=== PATIENT | female | born 1990 | race Caucasian/White ===

== ENCOUNTER 2018-10-12 06:00 | Emergency (ER) | payer OTHER, MEDICAID, SELFPAY ==
--- NOTE | 2018-10-12 06:06 | ED_ITS ---
HPI - General Adult General Chief complaint: Upper Respiratory Symptoms Stated complaint: horrible cold, phlegm, hurts to cough Time Seen by Provider: 10/12/18 06:04 Source: patient Mode of arrival: ambulatory Limitations: no limitations History of Present Illness HPI narrative: patient is a 28-year-old female here for evaluation of cough and congestion for the past couple days. She has been taking ujgi-bqi-jifvlpp cough and sinus medication. She does have sinus tenderness. She states the medications are not helping her. Couple hours ago she had severe chest congestion. No fevers. Related Data Previous Rx's Medication Instructions Recorded benzonatate [Tessalon Perles] 100 mg PO TID PRN #14 cap 10/12/18 Allergies Allergy/AdvReac Type Severity Reaction Status Date / Time No Known Drug Allergies Allergy Verified 10/12/18 06:21 Review of Systems Constitutional Denies fever(s) and Denies headache(s) ENT Ears, Nose, Mouth, and Throat: Denies headache(s), Reports sinus pressure and Denies sore throat Cardiovascular Denies chest pain and Reports dyspnea Respiratory Reports cough and Reports dyspnea Gastrointestinal Gastrointestinal: Denies abdominal pain and Denies change in bowel habits Integumentary/Breasts Denies rash Neurologic Denies headache(s) Allergic/Immunologic Denies urticaria PFSH Medical History Healthy adult (Acute) Social History lives independently: Yes Smoking Status: Current every day smoker Social History lives independently: Yes Smoking Status: Current every day smoker Exam Initial Vital Signs Initial Vital Signs: Vital Signs Temperature 99.3 F 10/12/18 06:15 Pulse Rate 106 H 10/12/18 06:15 Respiratory Rate 17 10/12/18 06:15 Blood Pressure 122/78 10/12/18 06:15 Pulse Oximetry 98 10/12/18 06:15 Const General: cooperative, comfortable, well developed, well groomed and No acute distress Orientation: alert, awake and oriented x3 HENMT Head: normal to inspection and normocephalic Resp Effort & Inspection: normal respiratory effort and cough Auscultation: clear to auscultation bilaterally Cardio Rate: regular rate Skin Lesions: no lesions Rashes: no rashes Neuro General: alert, awake and oriented x3 Extrem General: normal to inspection and capillary refill normal Psych Appearance: grossly normal and well kempt Course Orders Ordered: ED Orders 10/12/18 06:12 XR chest 1V Stat Vital Signs - 8 hr 10/12/18 06:15 10/12/18 06:26 Temperature 99.3 F 99.3 F Pulse Rate 106 H 106 H Respiratory Rate 17 17 Blood Pressure [Left Arm] 122/78 Pulse Oximetry 98 98 Medical Decision Making Imaging Data Chest x-ray: Attestation: I personally reviewed and interpreted this imaging study as follows: My impression: No focal pneumonias no pneumothorax normal size heart MDM Narrative Medical decision making narrative: patient is nontoxic appearing. Not in any respiratory distress. My read of the chest x-ray shows no signs of pneumonia. Informed the patient that we would call her if the radiologist read the chest x- ray is otherwise. No indication for antibiotics. She has taken ohjs-cny-mwuobck decongestants. Will add Tessalon Perles to help with her symptoms. patient was given return precautions. Discharge Plan Departure Patient Disposition: Home Clinical Impression: Cough Upper respiratory infection Qualifiers: URI type: unspecified URI Qualified Code(s): J06.9 - Acute upper respiratory infection, unspecified Instructions: Cough (Alternative Therapy), DI for Viral Upper Respiratory Infe ction -- Adult Activity Restrictions/Additional Instructions: make sure your increasing your fluid intake. Be sure your checking the label on the wjqh-nhk-qlebxky cough and cold preparations to avoid taking the same medication in multiple different dosage forms. Call your primary care doctor for follow-up. Return to the emergency department for any new or worsening symptoms Prescriptions: New benzonatate [Tessalon Perles] 100 mg capsule 100 mg PO TID PRN (Reason: cough) Qty: 14 RF: 0
[2018-10-12 06:09] VITALS: BMI 27.4
--- NOTE | 2018-10-12 06:12 | DI.RAD.S_ITS ---
PROCEDURE: XR CHEST 1V INDICATIONS: fever and cough TECHNIQUE: One view of the chest was acquired. COMPARISON: None. FINDINGS: Surgical changes and devices: None. Lungs and pleura: Left basilar opacity infiltrate or artifact. No pleural effusions or pneumothorax. Mediastinum: Mediastinal contours appear normal. Heart size is normal. Bones and chest wall: No suspicious bony lesions. Overlying soft tissues appear unremarkable. IMPRESSION: Left basilar opacity infiltrate or artifact. Dictated by: Kamila Ramirez M.D. on 10/12/2018 at 9:07 Approved by: Kamila Ramirez M.D. on 10/12/2018 at 9:09
[2018-10-12 06:15] VITALS: BP 122/78; PULSE 106; RESP 17; TEMP 37.4; O2SAT 98
[2018-10-12 06:26] VITALS: PULSE 106; RESP 17; TEMP 37.4; O2SAT 98; BMI 27.4
== END 2018-10-12 06:32 | disposition home or self-care (01) ==
PROVIDERS: Emergency Provider Emergency Medicine
DX: J06.9 Acute upper respiratory infection, unspecified (principal)
CPT/HCPCS: 71045; 99282; 99283

== ENCOUNTER 2021-01-24 00:25 | Observation (INO) | payer OTHER, MEDICAID, SELFPAY ==
[2021-01-24] VITALS (17 sets, daily range): BP systolic 93–111; BP diastolic 47–61; PULSE 70–101; RESP 16–21; TEMP 36.2–36.9; O2SAT 97–100; BMI 299.5; BMI 25.7
--- NOTE | 2021-01-24 | PATH_ITS ---
[facility] Accession Number: [id number] . 01 Material submitted: . fallopian tube - PORTION OF RIGHT FALLOPIAN TUBE WITH ECTOPIC . 02 Diagnosis: Right Fallopian Tube, Salpingectomy: Fimbriated fallopian tube with few chorionic villi present, consistent with ectopic gestation. Simple benign paratubal cysts. No evidence of neoplasm. MRV 01/28/2021 1434 Local . 02 Electronically signed: . Edilberto Santiago MD, PhD, Pathologist NPI- [id number] . 01 Gross description: . The specimen is received in formalin labeled portion right fallopian tube with ectopic and consists of a 3.5 cm in length x 1.5 cm in diameter fragmented, disrupted fallopian tube with a pink-purple smooth to ragged serosa. Sectioning reveals a mcrae-pink hemorrhagic mucosa and a lumen measuring 1.0 cm in diameter. The lumen contains clotted blood but no chorionic villi or parts identified. Also, received are multiple red-brown to mcrae-pink fragments of soft tissue and clotted blood, measuring 4.0 x 4.0 x 2.0 cm in aggregate. Plasterer Apprentice sections are submitted. . A1 - Margin en face (blue). A2-A3 - Bisected fimbria. A4 - Central cross sections. A5 - Additional fragments of soft tissue. ([id number]) /[facility] 01/27/2021 1625 Local . 02 Pathologist provided ICD-10: O00.101 . 02 CPT . 332896 Performed at: 01 [facility] [address] [facility], [place], [place] [id number] MD Smooth Ramachandran MD Phone: [phone] Performed at: 02 [facility] [id number] [place] [id number] MD Zoe Caceres MD Phone: [phone]
[2021-01-24 01:00] LABS: Add Manual Diff / Slide Review NO; Basophils Absolute Auto 0 /uL (0-100); Basophils Percent Auto 0.2 % (0-2); Eosinophils Absolute Auto 200 /uL (0-450); Eosinophils Percent Auto 1.2 % (2-4); Hemoglobin 11.6 g/dL (12.0-16.0); Lymphocytes Absolute Auto 1600 /uL (1100-4500); Lymphocytes Percent Auto 10.1 % (25-40); Mean Corpuscular HGB Conc 33.2 % (30-36); Mean Corpuscular Hemoglobin 29.8 PG (26-34); Mean Corpuscular Volume 89.9 fL (80-100); Monocytes Absolute Auto 800 /uL (0-900); Monocytes Percent Auto 5.1 % (3-14); Neutrophils Absolute Auto 13400 /uL (1500-7000); Neutrophils Percent Auto 83.4 % (50-75); Platelet Count 308 X10^3/uL (150-400); Red Blood Cell Count 3.89 X10^6/uL (4.0-5.2); Red Cell Distribution Width 12.8 % (11.6-14.8)
[2021-01-24 01:08] LABS: Alanine Aminotransferase 14 IU/L (<35); Albumin 3.7 g/dL (3.5-5.0); Albumin Globulin Ratio 1.2 (1.0-2.8); Alkaline Phosphatase 63 U/L (38-126); Aspartate Aminotransferase 20 IU/L (14-36); BUN Creatinine Ratio 21.8 (6-22); Bilirubin Total 0.3 mg/dL (0.2-1.3); Blood Urea Nitrogen 12 mg/dL (7-17); Carbon Dioxide 25 mmol/L (22-32); Chloride 103 mmol/L (98-107); Estimated Glomerular Filt Rate > 60.0 mL/min (>60); Globulin 3.1 g/dL (1.7-4.1); Glucose 144 mg/dL (70-100); HEMOLYSIS < 15 (0-50); Lipase 115 U/L (23-300); Sodium 137 mmol/L (137-145); Total Protein 6.8 g/dL (6.3-8.2)
--- NOTE | 2021-01-24 01:48 | ED_ITS ---
HPI - General Adult General Chief complaint: Abdominal Pain Stated complaint: Stomach pain severe Time Seen by Provider: 01/24/21 00:39 Source: patient Mode of arrival: Ambulatory Limitations: no limitations History of Present Illness HPI narrative: Patient is an otherwise healthy 30-year-old female who arrives to the emergency department today for evaluation of generalized abdominal pain. She states that approximately 1 week ago she had lower abdominal discomfort that was fairly severe for approximately a 1 hour but then resolved/improved on its own. She states that over the past week she has had a low-grade lower abdominal discomfort however earlier today she was bending over putting on her shoes when she had a sudden increase in the discomfort again and this time it has continued and that is what brought her into the emergency department. She denies any vaginal bleeding. No urinary symptoms. No change in bowel habits. No prior abdominal surgeries. Has not tried anything for her symptoms prior to arrival. Related Data Previous Rx's Medication Instructions Recorded benzonatate [Tessalon Perles] 100 mg PO TID PRN #14 cap 10/12/18 Allergies Allergy/AdvReac Type Severity Reaction Status Date / Time No Known Drug Allergies Allergy Verified 10/12/18 06:21 Review of Systems Constitutional Constitutional: Denies fever(s) Cardiovascular Cardiovascular: Denies chest pain and Denies dyspnea Respiratory Respiratory: Denies dyspnea Gastrointestinal Gastrointestinal: Reports abdominal pain, Denies change in bowel habits, Denies nausea and Denies vomiting Genitourinary Genitourinary: Reports dysuria Genitourinary: Denies abnormal vaginal bleeding and Reports dysuria Musculoskeletal Musculoskeletal: Reports system reviewed and no additional complaints, except as documented Integumentary/Breasts Skin/Breast: Reports system reviewed and no additional complaints, except as documented Neurologic Neurologic: Denies behavioral changes Psychiatric Psychiatric: Denies behavioral changes Hematologic/Lymphatic On Anticoagulants: No Allergic/Immunologic Allergic/Immunologic: Reports system reviewed and no additional complaints, except as documented Patient History Medical History Healthy adult Social History lives independently: Yes Smoking Status: Current every day smoker Smoking Status: Current every day smoker alcohol intake frequency: 0-2 drinks per day Substance Use Type: methamphetamine Exam Initial Vital Signs Initial Vital Signs: Vital Signs Pulse Rate 95 H 01/24/21 00:37 Respiratory Rate 18 06/12/21 00:37 Blood Pressure 99/55 L 01/24/21 00:37 Pulse Oximetry 100 01/24/21 00:37 Const General: cooperative and comfortable Limitations: mental status not altered HENMT Head: normal to inspection and normocephalic Resp Effort & Inspection: normal respiratory effort Auscultation: clear to auscultation bilaterally Cardio Rate: regular rate Rhythm: regular rhythm GI Inspection: non-distended Palpation: soft and tender (Diffuse tenderness) Back/Spine/Pelvis Back: No CVA tenderness Skin Lesions: no lesions Rashes: no rashes Neuro General: patient alert, patient awake and patient oriented x3 Cognition: normal cognition Speech: speech normal Extrem General: normal to inspection and capillary refill normal Psych Appearance: grossly normal and well kempt Scores GCS Tez coma scale eye opening: Spontaneous Tez coma scale verbal response: Orientated Tez coma scale motor response: Obey commands [place] coma scale total score: 15 Course Orders Ordered: ED Orders 01/24/21 00:50 ABO RH Type Stat Complete Blood Count AUTO DIFF Stat Comprehensive Metabolic Panel Stat HCG Quantitative /Beta subunit Stat Lipase Stat Test Serum,Qual Stat 01/24/21 02:19 US OB <= 14 weeks fetus Stat 01/24/21 03:45 COVID19 - ADMIT (SNOW GROOMER swab/PCR) Stat 01/24/21 03:57 Type and Screen Stat Sodium Chloride (Normal Saline 0.9%) 1,000 mls @ 125 mls/hr IV CONT DEANGELO Last Admin: 01/24/21 03:55 Dose: 125 mls/hr Documented by: ALTA Vital Signs Vital signs: Vital Signs - 8 hr 01/24/21 00:37 01/24/21 00:54 01/24/21 01:00 Temperature 97.6 F Pulse Rate 95 H 101 H 83 Respiratory Rate 18 19 16 Blood Pressure 99/55 L 99/55 L 111/61 Pulse Oximetry 100 100 100 01/24/21 01:30 01/24/21 02:30 01/24/21 03:00 Temperature Pulse Rate 80 80 74 Respiratory Rate Blood Pressure 108/59 L Pulse Oximetry 100 100 99 01/24/21 03:30 01/24/21 04:02 Temperature Pulse Rate 91 H 87 Respiratory Rate 18 Blood Pressure 99/55 L Pulse Oximetry 100 100 Medical Decision Making Lab Data Lab results reviewed: Yes I reviewed the patient's lab results. Result diagrams: 01/24/21 00:50 01/24/21 00:50 Labs: Lab Results 01/24/21 01/24/21 01/24/21 Range/Units 00:50 00:50 00:50 WBC 16.0 H (4.5-11.0) X10^3/uL RBC 3.89 L (4.0-5.2) X10^6/uL Hgb 11.6 L (12.0-16.0) g/dL Hct 35.0 L (36-46) % MCV 89.9 (80-100) fL MCH 29.8 (26-34) PG MCHC 33.2 (30-36) % RDW 12.8 (11.6-14.8) % Plt Count 308 (150-400) X10^3/uL Neut % (Auto) 83.4 H (50-75) % Lymph % (Auto) 10.1 L (25-40) % Bullock % (Auto) 5.1 (3-14) % Eos % (Auto) 1.2 L (2-4) % Baso % (Auto) 0.2 (0-2) % Neut # (Auto) 73036 H (5689-9086) /uL Lymph # (Auto) 1600 (5106-3151) /uL Bullock # (Auto) 800 (0-900) /uL Eos # (Auto) 200 (0-450) /uL Baso # (Auto) 0 (0-100) /uL Sodium 137 (137-145) mmol/L Potassium 4.0 (3.4-5.1) mmol/L Chloride 103 (98-107) mmol/L Carbon Dioxide 25 (22-32) mmol/L BUN 12 (7-17) mg/dL Creatinine 0.55 (0.52-1.04) mg/dL Estimated GFR > 60.0 (>60) mL/min BUN/Creatinine Ratio 21.8 (6-22) Glucose 144 H (70-100) mg/dL Calcium 9.0 (8.4-10.2) mg/dL Total Bilirubin 0.3 (0.2-1.3) mg/dL AST 20 (14-36) IU/L ALT 14 (<35) IU/L Alkaline Phosphatase 63 (38-126) U/L Total Protein 6.8 (6.3-8.2) g/dL Albumin 3.7 (3.5-5.0) g/dL Globulin 3.1 (1.7-4.1) g/dL Albumin/Globulin Ratio 1.2 (1.0-2.8) Lipase 115 (23-300) U/L HCG, Quant mIU/mL Serum , Qual Positive H (Negative) Blood Type 01/24/21 01/24/21 Range/Units 00:50 00:50 WBC (4.5-11.0) X10^3/uL RBC (4.0-5.2) X10^6/uL Hgb (12.0-16.0) g/dL Hct (36-46) % MCV (80-100) fL MCH (26-34) PG MCHC (30-36) % RDW (11.6-14.8) % Plt Count (150-400) X10^3/uL Neut % (Auto) (50-75) % Lymph % (Auto) (25-40) % Bullock % (Auto) (3-14) % Eos % (Auto) (2-4) % Baso % (Auto) (0-2) % Neut # (Auto) (0306-0575) /uL Lymph # (Auto) (6718-1403) /uL Bullock # (Auto) (0-900) /uL Eos # (Auto) (0-450) /uL Baso # (Auto) (0-100) /uL Sodium (137-145) mmol/L Potassium (3.4-5.1) mmol/L Chloride (98-107) mmol/L Carbon Dioxide (22-32) mmol/L BUN (7-17) mg/dL Creatinine (0.52-1.04) mg/dL Estimated GFR (>60) mL/min BUN/Creatinine Ratio (6-22) Glucose (70-100) mg/dL Calcium (8.4-10.2) mg/dL Total Bilirubin (0.2-1.3) mg/dL AST (14-36) IU/L ALT (<35) IU/L Alkaline Phosphatase (38-126) U/L Total Protein (6.3-8.2) g/dL Albumin (3.5-5.0) g/dL Globulin (1.7-4.1) g/dL Albumin/Globulin Ratio (1.0-2.8) Lipase (23-300) U/L HCG, Quant 46783 mIU/mL Serum , Qual (Negative) Blood Type A Positive Urine Dip Bedside Urine Glucose Negative Bedside Urine Bilirubin + 1 Bedside Urine Ketone - Negative Urine Specific Stamps 1.030 Bedside Urine Occult Blood - Negative Bedside Urine pH 5.5 Bedside Urine Protein + 30 Bedside Urine Urobilinogen - Negative Bedside Urine Nitrite - Negative Bedside Urine Leukocytes - Negative Esterase Point of care testing: Urine Dip Bedside Urine Glucose Negative Bedside Urine Bilirubin + 1 Bedside Urine Ketone - Negative Urine Specific Stamps 1.030 Bedside Urine Occult Blood - Negative Bedside Urine pH 5.5 Bedside Urine Protein + 30 Bedside Urine Urobilinogen - Negative Bedside Urine Nitrite - Negative Bedside Urine Leukocytes - Negative Esterase Imaging Data US - OB: Radiologist's Impression: Live right ectopic but may be partially ruptured is there is moderate complex free fluid MDM Narrative Medical decision making narrative: Patient does have a leukocytosis however no definitive indication for any infection. Had generalized abdominal tenderness. The initial plan was to obtain a CT scan for further evaluation however her test was positive. Patient did not know that she was . She thought that she was potentially 2 months along based on her last menstrual cycle. She states that this would be her 2nd making her a . States that her 1st resulted in a line vaginal uncomplicated delivery a 10 years ago. No prior history of sexually transmitted infections. No prior abdominal surgeries. She is Rh positive. HCG quantitative level was obtained it is above the discriminatory zone. An ultrasound was obtained which shows a live right ovarian ectopic . There was concern about a potential rupture given the fluid around the . I did discuss the findings with the patient. I also discussed the findings with Dr. Sanon with learning and development coordinator who comes emergency department to evaluate the patient for probable surgical intervention. Patient is currently stable. Discharge Plan Departure Patient Disposition: Admitted As Inpatient Clinical Impression: Ectopic
[2021-01-24 02:08] LABS: Pregnancy Test Serum,Qual Positive (Negative)
--- NOTE | 2021-01-24 02:19 | DI.US.S_ITS ---
PROCEDURE: US OB <= 14 WEEKS FETUS INDICATIONS: ABDOMINAL PAIN TECHNIQUE: Real-time scanning was performed of the fetus and maternal pelvic organs, with image documentation. Endovaginal scanning was also performed to better visualize the fetus and maternal ovaries. COMPARISON: None. FINDINGS: Embryo: No findings of an intrauterine can be seen. Within the right adnexal region, there is an ectopic seen, with a measured heart rate of 122 beats per minute. The crown-rump length measures 8 mm, which corresponds to an estimated gestational age of 6 weeks 5 days. A 2.8 mm yolk sac can be seen. Maternal organs: The uterus measures 9.1 x 6 x 4.8 cm. Simple and complex nabothian cysts are seen. The endometrial stripe measures 11 mm and demonstrates heterogeneity. Moderate complex free fluid can be seen within the adnexa on both sides and within the pelvic cul-de-sac. The right ovary is enlarged measuring 7.7 x 6.3 x 4.2 cm, and demonstrates a thick walled cyst that measures up to 2.9 cm. Normal appearing color flow can be seen within the right ovary. The left ovary is unremarkable, measuring 2.8 x 2.6 x 1.7 cm. IMPRESSION: Live right adnexal ectopic , with a pole with a heartbeat seen. The ectopic may be partially ruptured, as there is moderate complex free fluid can be seen within both adnexal regions and within the pelvic cul-de-sac. An associated enlarged right ovary is seen. Note: No significant discrepancy from the preliminary report. Dictated by: Zach Landers M.D. on 01/24/2021 at 7:57 Approved by: Zach Landers M.D. on 01/24/2021 at 8:04
[2021-01-24 03:08] LABS: HCG Quantitative /Beta subunit 16621 mIU/mL
[2021-01-24] MEDS: SODIUM CHLORIDE 0.9% 1,000 ML 125 ML IV ×2 (03:55→06:40)
[2021-01-24 04:43] LABS: COVID19 - ADMIT (NP swab/PCR) Negative (Negative)
--- NOTE | 2021-01-24 05:47 | P.HPOB_ITS ---
History of Present Illness History of Present Illness Narrative: Humera Watts is a 30 year old , LMP 2 months ago who presented @ midnight on the morning of 01/24/2021 with a twod ay history of lower abdominal pain. Evaluation in the [facility] ED revealed a + hCG with no IUP but a live 6-7 week ectopic in the right adnexa involving the right ovary and associated hemoperitoneum/clots in the pelvis/adnexae. After counseling regarding all options for management of this condition, the patient is admitted for diagnostic laparoscopy with possible right salpingo-oophorectomy for what has been diagnosed as a partially ruptured right ovarian ectopic . Her last solid food was at approximately 7:00 p.m. on the evening of 01/23/2021 and she did consume approximately 1/2 cup of bottled water just brefore arriving at the ED @ [place] nearly 6 hours ago. BT A+. [facility] Medical History (Updated 01/24/21 @ 05:54 by Damon Sanon MD) Amblyopia Healthy adult Methamphetamine use Surgical History (Updated 01/24/21 @ 05:56 by Damon Sanon MD) History of eye surgery Family History (Updated 01/24/21 @ 05:57 by Damon Sanon MD) Father Heart attack COPD (chronic obstructive pulmonary disease) Social History (Updated 01/24/21 @ 05:58 by Damon Sanon MD) lives independently: Yes Smoking Status: Current every day smoker Tobacco: How many years used: 15 alcohol intake: current substance use type: methamphetamine Meds Home Medications and Allergies Home Medications Medication Instructions Recorded Confirmed Type benzonatate [Tessalon Perles] 100 mg PO TID PRN #14 cap 10/12/18 Rx Allergies Allergy/AdvReac Type Severity Reaction Status Date / Time No Known Drug Allergies Allergy Verified 10/12/18 06:21 Review of Systems Review of Systems ROS: Yes All systems reviewed with the patient and are negative except as otherwise documented Exam Vital Signs (past 8 hours): - 01/24/21 00:37 01/24/21 00:54 01/24/21 01:00 Temperature 97.6 F Pulse Rate 95 H 101 H 83 Respiratory Rate 18 19 16 Blood Pressure 99/55 L 99/55 L 111/61 Pulse Oximetry 100 100 100 01/24/21 01:30 01/24/21 02:30 01/24/21 03:00 Temperature Pulse Rate 80 80 74 Respiratory Rate Blood Pressure 108/59 L Pulse Oximetry 100 100 99 01/24/21 03:30 01/24/21 04:02 01/24/21 04:30 Temperature Pulse Rate 91 H 87 79 Respiratory Rate 18 Blood Pressure 99/55 L 106/57 L Pulse Oximetry 100 100 100 Oxygen Delivery Method Room Air Const General: cooperative and ill appearing Nutritional Appearance: average body habitus Orientation: awake and oriented x3 HENMT Head: normocephalic and atraumatic Ears: hearing grossly normal bilaterally Nose: external nose normal Eyes Alignment and Position: alignment abnormal Periorbital: periorbital findings normal Eyelids: eyelids normal Conjunctivae: conjunctivae normal Sclera: sclerae normal Cornea: corneas normal Pupils: PERRL EOM: EOM intact bilaterally Neck Neck: full ROM and trachea midline Thyroid: thyroid normal Lymphatic: No lymphadenopathy Resp Effort & Inspection: normal respiratory effort and no respiratory distress Auscultation: clear to auscultation bilaterally Cardio Rate: regular rate Rhythm: regular rhythm Heart Sounds: S1 normal and S2 normal GI Inspection: normal to inspection, non-distended, no large pannus and no scars Palpation: no hepatosplenomegaly, firm and tender (Rebound in both LQ's) Auscultation: hypoactive bowel sounds Speculum Exam - Vagina: other (Deferred) Bimanual Exam- Adnexa, other: other (Deferred) Psych Appearance: grossly normal Mental Status: mental status grossly normal Speech and Movement: speech and movement normal Mood: congruent mood Affect: normal affect Attitude: cooperative Thought Process: normal Thought Content: normal Judgment: judgment good Objective Labs Result Diagrams: 01/24/21 00:50 01/24/21 00:50 Labs: Laboratory Results - last 24 hr 01/24/21 01/24/21 01/24/21 00:50 00:50 00:50 WBC 16.0 H RBC 3.89 L Hgb 11.6 L Hct 35.0 L MCV 89.9 MCH 29.8 MCHC 33.2 RDW 12.8 Plt Count 308 Neut % (Auto) 83.4 H Lymph % (Auto) 10.1 L Sunflower % (Auto) 5.1 Eos % (Auto) 1.2 L Baso % (Auto) 0.2 Neut # (Auto) 97630 H Lymph # (Auto) 1600 Sunflower # (Auto) 800 Eos # (Auto) 200 Baso # (Auto) 0 Sodium 137 Potassium 4.0 Chloride 103 Carbon Dioxide 25 BUN 12 Creatinine 0.55 Estimated GFR > 60.0 BUN/Creatinine Ratio 21.8 Glucose 144 H Calcium 9.0 Total Bilirubin 0.3 AST 20 ALT 14 Alkaline Phosphatase 63 Total Protein 6.8 Albumin 3.7 Globulin 3.1 Albumin/Globulin Ratio 1.2 Lipase 115 HCG, Quant Serum , Qual Positive H SARS-CoV-2 (PCR) Blood Type Antibody Screen 01/24/21 01/24/21 01/24/21 00:50 00:50 03:45 WBC RBC Hgb Hct MCV MCH MCHC RDW Plt Count Neut % (Auto) Lymph % (Auto) Sunflower % (Auto) Eos % (Auto) Baso % (Auto) Neut # (Auto) Lymph # (Auto) Sunflower # (Auto) Eos # (Auto) Baso # (Auto) Sodium Potassium Chloride Carbon Dioxide BUN Creatinine Estimated GFR BUN/Creatinine Ratio Glucose Calcium Total Bilirubin AST ALT Alkaline Phosphatase Total Protein Albumin Globulin Albumin/Globulin Ratio Lipase HCG, Quant 74722 Serum , Qual SARS-CoV-2 (PCR) Negative Blood Type A Positive Antibody Screen 01/24/21 03:57 WBC RBC Hgb Hct MCV MCH MCHC RDW Plt Count Neut % (Auto) Lymph % (Auto) Sunflower % (Auto) Eos % (Auto) Baso % (Auto) Neut # (Auto) Lymph # (Auto) Sunflower # (Auto) Eos # (Auto) Baso # (Auto) Sodium Potassium Chloride Carbon Dioxide BUN Creatinine Estimated GFR BUN/Creatinine Ratio Glucose Calcium Total Bilirubin AST ALT Alkaline Phosphatase Total Protein Albumin Globulin Albumin/Globulin Ratio Lipase HCG, Quant Serum , Qual SARS-CoV-2 (PCR) Blood Type A Positive Antibody Screen Negative Assessment & Plan Assessment & Plan narrative: 1. Acute abdomen due to partially ruptured right sided ovarian ectopic with hemoperitoneum - Admit for diagnostic laparoscopy, possible RSO - The patient was counseled regarding alternatives, risks, benefits, and potential outcomes associated with diagnostic laparoscopy for partially ruptured ectopic . With full understanding of the above we are proceeding to the operating room this time due to the aforementioned diagnoses. COVID-19 COVID-19 status: Negative Result date/Date tested (Pos, Neg/Pending): 01/24/21 Time Spent With Patient Time with patient: 25 - 35 minutes
[2021-01-24] MEDS: GABAPENTIN 300 MG CAPSULE PO (06:39)
[2021-01-24] MEDS: SCOPOLAMINE 1 PATCH TOP (06:39)
[2021-01-24] MEDS: ACETAMINOPHEN 325 MG TABLET 975 MG PO (06:39)
--- NOTE | 2021-01-24 07:00 | SUR.HOLD ---
Pt brought from ER to OPD and left for OR in stable condition.
--- NOTE | 2021-01-24 07:20 | SUR.OPER ---
Lithotomy on padded OR bed, head on pillow, arms secured on padded arm boards at <90 degrees abduction. Legs secured in padded yellow fins stirrups.
[2021-01-24] MEDS: BUPIVACAINE 0.5% (PF) VIAL 30 ML INJ (07:26)
--- NOTE | 2021-01-24 08:06 | P.OP_ITS ---
Operative Date/Time/Diagnoses Date of procedure: 01/24/21 Time of procedure: 07:00 Pre-op diagnosis: Ruptured right ectopic Post-op diagnosis: same Procedure & Clinicians Procedure: Procedures Operation Date: 01/24/21 07:00 Actual Procedures Side Surgeon p Laparoscopic PARTIAL RIGHT SALPINGECTOMY Right Damon Sanon MD Indications: Humera Watts is a 30 year old , LMP 2 months ago who presented @ midnight on the morning of 01/24/2021 with a twod ay history of lower abdominal pain. Evaluation in the [facility] ED revealed a + hCG with no IUP but a live 6-7 week ectopic in the right adnexa involving the right ovary and associated hemoperitoneum/clots in the pelvis/adnexae. After counseling regarding all options for management of this condition, the patient is admitted for diagnostic laparoscopy with possible right salpingo-oophorectomy for what has been diagnosed as a partially ruptured right ovarian ectopic . BT A+. Surgeon: Damon Sanon Anesthesia Type: General Operative Notes Findings: Upon entry into the abdominal cavity, hemoperitoneum is noted. After evacuation of the hemoperitoneum and clots, the patient is found to have a ruptured and actively bleeding ectopic in the mid isthmic portion of the right fallopian tube. The ovary on the right side is essentially normal and is not involved with the ectopic. There are filmy adhesions in the anterior cul-de-sac and filmy adhesions involving the left tube and ovary as well. The appearance is that of previous pelvic inflammatory disease. The anterior and posterior cul-de-sacs are otherwise unremarkable. Visualization of the upper abdomen also shows perihepatic adhesions consistent with Ronda-Elier syndrome. Closure Type: primary Specimen(s): right tube Applied: catheter (Straight cath x 1) Estimated blood loss (mL): 100 Blood products transfused: none Procedure in detail: With the patient under satisfactory general endotracheal anesthesia in the modified dorsal lithotomy position, the abdomen perineum and vagina were prepped and draped in the usual fashion for laparoscopic surgery. A safety time-out was then taken per [facility] Main OR protocol. A straight catheter was used to empty the bladder. The umbilicus was infiltrated with 0.5% Marcaine and a 1 cm vertical umbilical incision was made. A Veress needle was used to insufflate the abdominal cavity of carbon dioxide and an 11 mm trocar was placed through the incision. The intra-abdominal location of the port was confirmed with a 5 mm scope and the pelvis and abdomen were briefly inspected prior to insertion of a pair of 5 mm ports in the left and right mid quadrants after infiltration of the skin and subcutaneous tissues with 0.5% Marcaine. Using a 3 puncture technique the pelvis and abdomen were more thoroughly visualized and the hemoperitoneum evacuated with suction and irrigation. The right adnexa was more fully visualized and active bleeding was seen to be coming from the mid isthmic portion of the fallopian tube on the right side where rupture of the ectopic had occurred. The tube was then mobilized at its distal portion and using a PK device, the fimbria ovarica was coagulated and divided and then the mesosalpinx under the tube was coagulated and divided all the way to the proximal portion of the tube where the tube was excised. An Endo-Catch device was then inserted through the 11 mm port in the umbilicus and the specimen retrieved without incident. The pelvis and abdomen were then thoroughly lavaged and cleared of all clots and blood. The pelvis was inspected again and there was no and evidence of bleeding at the site of the salpingectomy. The pneumoperitoneum was then vented and the trocars removed. The incisions were then closed with 4-0 Monocryl using inverted interrupted sutures, skin glue was applied, and appropriate dressings applied once the glue had dried. The patient was awakened and the operation was completed with the patient then transferred to the PACU for period of recovery. Complications: none Post-operative Condition: stable Disposition: PACU Plan for aftercare: Patient will be observed in the PACU and if stable will be allowed to be discharged home later today.
--- NOTE | 2021-01-24 08:18 | SUR.PHASEI ---
Pt arrived from OR gradually awake, slight cramping pain 2/10, refused any meds for treatment, ice pack to abdomen.
--- NOTE | 2021-01-24 08:32 | SUR.PHASEI ---
Stable pacu stay.
--- NOTE | 2021-01-24 08:55 | SUR.PHASEII ---
Dr. Sanon spoke with pt at bedside, pt ready to go, mae pad and dressings c/d/i. Pt having hard time getting someone to pick her up.
--- NOTE | 2021-01-24 11:37 | SUR.PHASEII ---
Late entry: Pt had juice and applesauce, mae pad remained c/d/i. After many phone calls made for pt, no ride/person available for pt to take home. Multiple messages left on VM of several friends. Alanna NAJERA coordinator called, unable to help with situation. Aureliano walked the parking lot due to pt thinking they may still be there- did not find anyone. At 1045 friend finally arrived to take pt home. Pt left unit in stable condition.
== END 2021-01-24 10:45 | disposition home or self-care (01) ==
LOC: ED 03:40 → AC 05:25
PROVIDERS: Admitting Provider Obstetrics & Gynecology; Emergency Provider Emergency Medicine; Referring Provider Emergency Medicine; Visit Provider Obstetrics & Gynecology
DX: O00.101 Right tubal pregnancy without intrauterine pregnancy (principal); F17.210 Nicotine dependence, cigarettes, uncomplicated; Z3A.01 Less than 8 weeks gestation of pregnancy; F15.90 Other stimulant use, unspecified, uncomplicated; Z20.822 Contact with and (suspected) exposure to COVID-19
CPT/HCPCS: 59151; 36415; 76801; 76817; 80053; 81003; 83690; 84702; 84703; 85025; 86850; 86900; 86901; 87635; 96360; 96361; 99284; C9803; G0378; J0330; J1100; J2250; J2405; J2704; J3010